=== PATIENT | male | born 1935 | race Asian ===

== ENCOUNTER 2021-01-03 11:41 | Emergency (ER) | payer MEDICARE, OTHER ==
[~2021-01-03] VITALS: Ht 172.7 cm; Wt 68.2 kg
[~2021-01-03 11:41] MED LIST: AMLO-257 PO; ASPI-482 PO; CLOP75TA32 PO; FAMO20 PO; HYDR-4173 PO; LINA5TAB PO; LOSA50TA37 PO; METO-558 PO; MULT1TAB PO; PRAV40TA3 PO
[2021-01-03] MEDS ORDERED: AMLO-258 PO (12:02)
[2021-01-03] MEDS ORDERED: CLOP75TA60 PO (12:03)
[2021-01-03] MEDS ORDERED: METO50 PO (12:03)
[2021-01-03] MEDS ORDERED: LINA5TAB PO (12:04)
[2021-01-03] MEDS ORDERED: PRAV10TA39 PO (12:04)
[2021-01-03] MEDS ORDERED: OXYB-34 PO (12:05)
[2021-01-03] MEDS ORDERED: EZET10TA57 PO (12:05)
[2021-01-03] MEDS ORDERED: XALA2.5OS OS (12:07)
[2021-01-03 15:31] VITALS: BP 184/89
== END 2021-01-03 15:52 | disposition home or self-care (01) ==
LOC: EMS 11:41
DX: S00.03XA Contusion of scalp, initial encounter (principal); E11.9 Type 2 diabetes mellitus without complications; I10 Essential (primary) hypertension; W01.0XXA Fall on same level from slipping, tripping and stumbling without subsequent striking against object, initial encounter; Y93.01 Activity, walking, marching and hiking; Y92.89 Other specified places as the place of occurrence of the external cause; Y99.8 Other external cause status
CPT/HCPCS: 70450; 72125; 82962; 99285